=== PATIENT | female | born 1995 | race Caucasian/White ===

== ENCOUNTER 2018-07-21 02:57 | Inpatient (IN) | payer MEDICAID ==
[2018-07-21 03:28] LABS: URINE SOURCE RANDOM
[2018-07-21 03:31] LABS: URINE BILIRUBIN NEGATIVE (NEGATIVE); URINE BLOOD SMALL (NEGATIVE); URINE GLUCOSE (UA) NEGATIVE (NEGATIVE); URINE KETONE NEGATIVE (NEGATIVE); URINE LEUKOCYTE ESTERASE SMALL (NEGATIVE); URINE MICROSCOPIC INDICATED? YES; URINE NITRATE NEGATIVE (NEGATIVE); URINE PROTEIN NEGATIVE (NEGATIVE); URINE UROBILINOGEN 0.2 E.U./dL (0.2 - 1.0)
[2018-07-21 03:43] LABS: URINE CLARITY HAZY (CLEAR); URINE COLOR YELLOW
[2018-07-21] MEDS ORDERED: Sodium Chloride 0.9% 1,000 ML IV ONE (03:44)
[2018-07-21 03:45] LABS: % EOSINOPHILS 1.1 % (0.0-5.0); % LYMPHOCYTES 17.1 % (20.0-50.0); % MONOCYTES 4.1 % (2.0-10.0); % NEUTROPHILS 77.7 % (40.0-80.0); EOSINOPHILE ABSOLUTE 0.1 Th/cmm (0.1-0.4); HEMATOCRIT 37.9 % (41.0-60); HEMOGLOBIN 12.8 gm/dL (12-16); LYMPHOCYTE ABSOLUTE 1.7 Th/cmm (1.5-3.0); MEAN CELL VOLUME 85.9 fl (81-100); MEAN CORPUSCULAR HEMOGLOBIN 29.1 pg (27.0-31.0); MEAN CORPUSCULAR HGB CONC 33.8 pg (28.0-36.0); MEAN PLATELET VOLUME 8.1 fl; MONOCYTE ABSOLUTE 0.4 Th/cmm (0.3-1.0); PLATELET COUNT 314 Th/cmm (150-400); RED BLOOD COUNT 4.42 Mil/cmm (3.80-5.10); RED CELL DISTRIBUTION WIDTH 12.2 % (11.5-20.0); WHITE BLOOD COUNT 10.2 Th/cmm (4.8-10.8)
[2018-07-21 03:45] LABS: URINE BACTERIA FEW /hpf (NONE SEEN); URINE EPITHELIAL CELLS FEW /lpf (FEW)
[2018-07-21 04:01] LABS: AMYLASE SERUM 53 U/L (29-103); ANION GAP 11.6 (7.0-16.0); BUN - UREA NITROGEN 10 mg/dL (7-25); CALCIUM SERUM 9.3 mg/dL (8.6-10.3); CARBON DIOXIDE 23.8 mEq/L (21.0-31.0); CHLORIDE 107 mEq/L (98-107); CREATININE - SERUM 0.7 mg/dL (0.6-1.2); GFR AFRICAN-AMERICAN > 60.0 ml/min (>90); GFR NON AFRICAN-AMERICAN > 60.0 ml/min; GLUCOSE 101 mg/dL (70-105); LIPASE 23 U/L (11-82); POTASSIUM SERUM 3.4 mEq/L (3.5-5.1); SODIUM SERUM 139 mEq/L (136-145)
[2018-07-21] MEDS ORDERED: Morphine Sulfate 2 mg/mL 1mL Syr ONE (04:43)
[2018-07-21] MEDS ORDERED: Morphine Sulfate 2 mg/mL 1mL Syr IVP STA (04:52)
[2018-07-21] MEDS ORDERED: cefTRIAXone 1 GM in Sodium Chloride 0.9% 50 ML IV ONE (04:52)
[2018-07-21] MEDS ORDERED: Potassium Chloride 20 mEq ER Tab PO ONE ×2 (05:17→05:18)
--- NOTE | 2018-07-21 06:05 | ED Physician Chart ---
ED Chief Complaint/HPI - Patient Information Date Seen:: 07/21/18 Time Seen:: 03:00 Chief Complaint:: Abdominal Pain History of Present Illness:: onset x 3 hours of intermittent, sharp, crampy abdominal pain especially at the RLQ and Right Flank regions with N/V; pt denies trauma, H/As, S/T, neck pain, cough, C/P, SOB, A/D/C, fever, chills, or urinary s/s Allergies:: Allergies Allergy/AdvReac Type Severity Reaction Status Date / Time No Known Allergies Allergy Verified 07/21/18 03:20 Vitals:: Vital Signs - 8 hr 07/21/18 03:00 Temp 99.0 F HR 118 RR 19 BP 123/78 O2 Sat % 98 Historian:: Patient Review:: Nurse's Note Reviewed ED Review of Systems - Review of Systems General/Constitutional: No fever, No chills, No weight loss, No weakness, No diaphoresis, No edema, No loss of appetite Skin: No skin lesions, No rash, No bruising Head: No headache, No light-headedness Eyes: No loss of vision, No pain, No diplopia ENT: No earache, No nasal drainage, No sore throat, No tinnitus Neck: No neck pain, No swelling, No thyromegaly, No stiffness, No mass noted Cardio Vascular: No chest pain, No palpitations, No PND, No orthopnea, No edema Pulmonary: No SOB, No cough, No sputum, No wheezing GI: Nausea, Vomiting, Diarrhea, Pain, No melena, No hematochezia, No constipation, No hematemesis G/U: No dysuria, No frequency, No hematuria, No nacturia [employer]: No vaginal discharge, No abnormal vaginal bleed, No contraction Musculoskeletal: No bone or joint pain, No back pain, No muscle pain Endocrine: No polyuria, No polydipsia Psychiatric: No prior psych history, No depression, No anxiety, No suicidal ideation, No homicidal ideation, No auditory hallucination, No visual hallucination Hematopoietic: No bruising, No lymphadenopathy Allergic/Immuno: No urticaria, No angioedema Neurological: No syncope, No focal symptoms, No weakness, No paresthesia, No headache, No seizure, No dizziness, No confusion, No vertigo ED Past Medical History - Past Medical History Obtainable: Yes Past Medical History: No significant medical hx Family History: None Social History: Non Smoker, No Alcohol, No Drug Use, Single Surgical History: None Psychiatricy History: None Medication: Reviewed Family Medical History - Family Member Mother History Unknown: Yes ED Physical Exam - Physical Examination General/Constitutional: Awake, Well-developed, well-nourished, Alert, No distress, GCS 15, Non-toxic appearing, Ambulatory Head: Atraumatic Eyes: Lids, conjuctiva normal, PERRL, EOMI Skin: Nl inspection, No rash, No skin lesions, No ecchymosis, Well hydrated, No lymphadenopathy ENMT: External ears, nose nl, TM canals nl, Nasal exam nl, Lips, teeth, gums nl , Oropharynx nl, Tonsils nl Neck: Nontender, Full ROM w/o pain, No JVD, No nuchal rigidity, No bruit, No mass, No stridor Respiratory: Nl effort/Exclusion, Clear to Auscultation, No Wheeze/Rhonchi/Rales Cardio Vascular: RRR, No murmur, gallop, rubs, NL S1 S2, Carotid/Femoral/Distal pulses equal bilaterally GI: No organomegaly, No hernia, Normal BS's, Nondistended, No mass/bruits Other GI comments:: + RLQ Tenderness and Rebound; + RCVAT; no pulsatile masses : No CVA tenderness Extremities: No tenderness or effusion, Full ROM, normal strength in all extremities, No edema, Normal digits & nails Neuro/Psych: Alert/oriented, DTR's symmetric, Normal sensory exam, Normal motor strength, Judgement/insight normal, Mood normal, Normal gait, No focal deficits Misc: Normal back, No paraspinal tenderness ED Labs/Radiology/EKG Results - Lab Results Results: Laboratory Tests 07/21/18 07/21/18 07/21/18 03:15 03:15 03:30 WBC 10.2 RBC 4.42 Hgb 12.8 Hct 37.9 L MCV 85.9 MCH 29.1 MCHC Differential 33.8 RDW 12.2 Plt Count 314 MPV 8.1 Neutrophils % 77.7 Lymphocytes % 17.1 L Monocytes % 4.1 Eosinophils % 1.1 Basophils % 0.0 Sodium Potassium Chloride Carbon Dioxide Anion Gap BUN Creatinine Est GFR ( Amer) Est GFR (Non-Af Amer) BUN/Creatinine Ratio Glucose Calcium Amylase Lipase Serum , Qual Urine Source RANDOM Urine Color YELLOW Urine Clarity HAZY Urine pH 7.0 Ur Specific [place] 1.010 Urine Protein NEGATIVE Urine Glucose (UA) NEGATIVE Urine Ketones NEGATIVE Urine Blood SMALL H Urine Nitrate NEGATIVE Urine Bilirubin NEGATIVE Urine Urobilinogen 0.2 Ur Leukocyte Esterase SMALL H Urine RBC 2-5 Urine WBC 6-10 H Ur Epithelial Cells FEW Urine Bacteria FEW Urine Test NEGATIVE 07/21/18 07/21/18 03:30 03:30 WBC RBC Hgb Hct MCV MCH MCHC Differential RDW Plt Count MPV Neutrophils % Lymphocytes % Monocytes % Eosinophils % Basophils % Sodium 139 Potassium 3.4 L Chloride 107 Carbon Dioxide 23.8 Anion Gap 11.6 BUN 10 Creatinine 0.7 Est GFR ( Amer) > 60.0 Est GFR (Non-Af Amer) > 60.0 BUN/Creatinine Ratio 14.3 Glucose 101 Calcium 9.3 Amylase 53 Lipase 23 Serum , Qual NEGATIVE Urine Source Urine Color Urine Clarity Urine pH Ur Specific [place] Urine Protein Urine Glucose (UA) Urine Ketones Urine Blood Urine Nitrate Urine Bilirubin Urine Urobilinogen Ur Leukocyte Esterase Urine RBC Urine WBC Ur Epithelial Cells Urine Bacteria Urine Test Comments:: Reviewed - Radiology Results Comments:: NAD ED Septic Shock - . Is Septic Shock (SBP<90, OR Lactate>4 mmol\L) present?: No - <6hrs of presentation: Vital Signs: Vital Signs - 8 hr 07/21/18 03:00 Temp 99.0 F HR 118 RR 19 BP 123/78 O2 Sat % 98 ED Reassessment (Disposition) - Reassessment Reassessment Condition:: Improved - Diagnosis Diagnosis:: Abdominal Pain; Acute Abdominal Pain; N/V; Intractable Pain; UTI; Nephrolithiasis; Hematuria; R/O: Appendicitis; Ovarian Cyst; Fever; Hypokalemia ; Dehydration - Aftercare/Follow up Instructions Aftercare/Follow-Up Instructions:: Counseled pt regarding lab results/diagnosis & need follow up, Counseled pt & family regarding lab results/diagnosis & need follow up - Patient Disposition Discharge/Transfer:: Acute Care w/in this hosp Accepting Physician:: Dr. Roche Time Called:: [id number] Time Responded:: 04:45 Admitted to:: Med/Surg Spoke to:: Dr. Roche Admitting Medical Physician:: Dr. Roche Condition at Disposition:: Stable, Improved
--- NOTE | 2018-07-21 07:53 | Diagnostic Imaging Report ---
CT scan of the abdomen and pelvis without intravenous contrast History: Pain Total DLP equals 670 CTDI equals 12.7 Axial sections were obtained from the xiphoid process down to the pubic symphysis. The liver demonstrates a normal size and contour. No focal lesions are seen. The spleen appears normal. No abnormalities are seen in the region of the pancreas. The kidneys appear normal bilaterally. The exam of the pelvis demonstrates mild right adnexal fullness with hypodensity. The findings may be associated with ovarian follicular changes. No other abnormal masses. No free fluid. No abnormality seen in the region of the appendix. IMPRESSION: 1. Mild right adnexal fullness with hypodensity that may be associated with ovarian follicular changes. Clinical correlation and correlation with the menstrual status needed. No other acute abnormalities.
[2018-07-21] MEDS ORDERED: D5-0.45NS w/20 mEq KCL 1,000 ML IV ONE ×2 (08:09→16:33)
[2018-07-21] MEDS: D5-0.45NS w/20 mEq KCL 1,000 ML IV SCH ×3 (08:19→22:30)
--- NOTE | 2018-07-21 09:02 | General Progress Note ---
Subjective - Review of Systems Service Date: 07/21/18 Events since last encounter: chart reviewed, seen in ER CT scan noted US in progress, no GB stones labs normal CBC, possible ovarian cyst will observe and repeat tests Objective - Results Result Diagrams: 07/21/18 03:30 07/21/18 03:30 Recent Labs: Laboratory Last Values WBC 10.2 Th/cmm (4.8-10.8) 07/21/18 03:30 RBC 4.42 Mil/cmm (3.80-5.10) 07/21/18 03:30 Hgb 12.8 gm/dL (12-16) 07/21/18 03:30 Hct 37.9 % (41.0-60) L 07/21/18 03:30 MCV 85.9 fl (81-100) 07/21/18 03:30 MCH 29.1 pg (27.0-31.0) 07/21/18 03:30 MCHC Differential 33.8 pg (28.0-36.0) 07/21/18 03:30 RDW 12.2 % (11.5-20.0) 07/21/18 03:30 Plt Count 314 Th/cmm (150-400) 07/21/18 03:30 MPV 8.1 fl 07/21/18 03:30 Neutrophils % 77.7 % (40.0-80.0) 07/21/18 03:30 Lymphocytes % 17.1 % (20.0-50.0) L 07/21/18 03:30 Monocytes % 4.1 % (2.0-10.0) 07/21/18 03:30 Eosinophils % 1.1 % (0.0-5.0) 07/21/18 03:30 Basophils % 0.0 % (0.0-2.0) 07/21/18 03:30 Sodium 139 mEq/L (136-145) 07/21/18 03:30 Potassium 3.4 mEq/L (3.5-5.1) L 07/21/18 03:30 Chloride 107 mEq/L (98-107) 07/21/18 03:30 Carbon Dioxide 23.8 mEq/L (21.0-31.0) 07/21/18 03:30 Anion Gap 11.6 (7.0-16.0) 07/21/18 03:30 BUN 10 mg/dL (7-25) 07/21/18 03:30 Creatinine 0.7 mg/dL (0.6-1.2) 07/21/18 03:30 Est GFR ( Amer) > 60.0 ml/min (>90) 07/21/18 03:30 Est GFR (Non-Af Amer) > 60.0 ml/min 07/21/18 03:30 BUN/Creatinine Ratio 14.3 07/21/18 03:30 Glucose 101 mg/dL (70-105) 07/21/18 03:30 Calcium 9.3 mg/dL (8.6-10.3) 07/21/18 03:30 Amylase 53 U/L (29-103) 07/21/18 03:30 Lipase 23 U/L (11-82) 07/21/18 03:30 Serum , Qual NEGATIVE (NEGATIVE) 07/21/18 03:30 Urine Source RANDOM 07/21/18 03:15 Urine Color YELLOW 07/21/18 03:15 Urine Clarity HAZY (CLEAR) 07/21/18 03:15 Urine pH 7.0 (4.6 - 8.0) 07/21/18 03:15 Ur Specific [place] 1.010 (1.005-1.030) 07/21/18 03:15 Urine Protein NEGATIVE mg/dL (NEGATIVE) 07/21/18 03:15 Urine Glucose (UA) NEGATIVE mg/dL (NEGATIVE) 07/21/18 03:15 Urine Ketones NEGATIVE mg/dL (NEGATIVE) 07/21/18 03:15 Urine Blood SMALL (NEGATIVE) H 07/21/18 03:15 Urine Nitrate NEGATIVE (NEGATIVE) 07/21/18 03:15 Urine Bilirubin NEGATIVE (NEGATIVE) 07/21/18 03:15 Urine Urobilinogen 0.2 E.U./dL (0.2 - 1.0) 07/21/18 03:15 Ur Leukocyte Esterase SMALL (NEGATIVE) H 07/21/18 03:15 Urine RBC 2-5 /hpf (0-5) 07/21/18 03:15 Urine WBC 6-10 /hpf (0-5) H 07/21/18 03:15 Ur Epithelial Cells FEW /lpf (FEW) 07/21/18 03:15 Urine Bacteria FEW /hpf (NONE SEEN) 07/21/18 03:15 Urine Test NEGATIVE 07/21/18 03:15 - Physical Exam Vitals and I&O: Vital Signs Temp 98.4 F 07/21/18 07:58 Pulse 91 07/21/18 07:58 Resp 18 07/21/18 07:58 BP 124/86 07/21/18 07:58 Pulse Ox 100 07/21/18 07:58 Intake & Output 07/20/18 07/21/18 07/21/18 18:59 06:59 18:59 Intake Total 1999 Balance 1999 Weight (lbs) 83.915 kg Intake: Intake, IV Amount 2000 Sodium Chloride 0.9% 1, 1000 000 ml @ Wide Open IV . [facility]0M [facility] Rx#:[id number] Other: Weight Source Patient stated Active Medications: Current Medications Ceftriaxone Sodium 1 gm/ (Sodium Chloride) 50 mls @ 100 mls/hr IV Q24HR [facility] Stop: 09/20/18 04:59 Potassium Chloride/Dextrose/Sod Cl (D5-0.45ns W/20 Meq Kcl) 1,000 mls @ 125 mls /hr IV .Q8H [facility] Stop: 09/19/18 05:59 Last Admin: 07/21/18 08:19 Dose: 125 mls/hr Morphine Sulfate (Morphine) 4 mg IVP Q4H PRN PRN Reason: Pain (Severe) Stop: 09/19/18 05:59 Ondansetron HCl (Zofran) 4 mg IV Q4H PRN PRN Reason: Nausea / Vomiting Stop: 09/19/18 05:59
--- NOTE | 2018-07-21 10:02 | Diagnostic Imaging Report ---
Abdominal ultrasound HISTORY: Pain The liver appears enlarged. There is an increase in hepatic parenchymal echogenicity. The finding may be associated with fatty infiltration and should be correlated with liver function tests. The gallbladder appears normal. No calculi are seen. No biliary dilatation. No abnormality seen in the region of the pancreas. The kidneys appear normal bilaterally. The appendix could not be visualized due to bowel gas. No other retroperitoneal or intra-abdominal abnormalities. IMPRESSION: 1. Hepatomegaly along with parenchymal changes that may be associated with fatty infiltration. The finding should be correlated with liver function tests. 2. No other abnormalities
[2018-07-21] MEDS ORDERED: Morphine Sulfate 4 mg/mL 1mL Syr ONE ×3 (11:19→21:42)
[2018-07-21] MEDS: Morphine Sulfate 4 mg/mL 1mL Syr IVP PRN ×2 (11:22→16:39)
--- NOTE | 2018-07-22 01:49 | History & Physical ---
ADMIT DATE: 07/21/2018 CHIEF COMPLAINT: Right lower lobe abdominal pain for 1 day duration. HISTORY OF PRESENT ILLNESS: The patient is a 22-year-old female presented to the Emergency Room complaining of severe pain in the right lower abdomen. Initial workup sent for urinary infection, possible acute appendicitis. CT of the abdomen was negative. The patient admitted to the hospital. Dr. Finney consulted on the case. She denies any fever or chills. No diarrhea. She has some nausea, no vomiting. The patient was started on IV fluid, antibiotic. Abdominal ultrasound was done today, which was negative for cholelithiasis or cholecystitis. PAST MEDICAL HISTORY: Significant for depression. PAST SURGICAL HISTORY: No recent surgery. ALLERGIES: None. MEDICATIONS: Celexa 10 mg a day. SOCIAL HISTORY: She denies smoking, drinks socially. No drug. FAMILY HISTORY: Noncontributory. REVIEW OF SYSTEMS: RENAL SYSTEM: No history of chronic renal disorder. CARDIOVASCULAR SYSTEM: No coronary artery disease. ENDOCRINE SYSTEM: No diabetes or thyroid problem. GASTROINTESTINAL SYSTEM: No upper or lower gastrointestinal bleed. NEUROLOGICAL SYSTEM: No seizure disorder. MUSCULOSKELETAL SYSTEM: No muscular dystrophy. HEMATOLOGICAL SYSTEM: No bleeding tendencies. RESPIRATORY SYSTEM: No asthma. GENITOURINARY: No dysuria or hematuria. PHYSICAL EXAMINATION: GENERAL: He is awake, alert, oriented, not in pain in no distress. VITAL SIGNS: Temperature 98, heart rate 88, and blood pressure 130/70. HEENT: Normocephalic. Pupils reacting equally to light and accommodation. Sclerae clear. NECK: Supple. Negative for lymphadenopathy, JVD, or bruit. CHEST: Entry of air bilateral normal. No rhonchi or wheezing. HEART: S1, S2 normal. No gallop rhythm. ABDOMEN: Soft, bowel sounds positive. There is tenderness in the right lower abdomen. Rebound negative. Bowel sounds positive. EXTREMITIES: No edema. NEUROLOGIC: She is awake, alert, oriented. No focal motor or sensory deficit. Cranial nerves II through XII are intact. LABORATORY DATA: CT of the abdomen significant for mild right adnexal fullness with hypodensity that may be associated with open infarct or changes. No other abnormality. Abdominal ultrasound significant for fatty liver. White blood cell 10.2, hemoglobin 10.8, hematocrit 37.9, and platelet 314. Sodium 139, potassium 3.4, BUN is 10, and creatinine 0.7. Urinalysis: White cells 6-10. ASSESSMENT: 1. Urinary tract infection. 2. Acute abdomen, possible secondary to right ovarian cyst. 3. History of depression. 4. Fatty liver. PLAN: The patient admitted to the hospital under Dr. Roche's service, IV fluid, antibiotic. The patient is a full code. JOB# [id number]
[2018-07-22 04:52] LABS: % BASOPHILS 0.7 % (0.0-2.0); % MONOCYTES 10.5 % (2.0-10.0); % NEUTROPHILS 60.8 % (40.0-80.0); EOSINOPHILE ABSOLUTE 0.2 Th/cmm (0.1-0.4); HEMATOCRIT 34.7 % (41.0-60); HEMOGLOBIN 11.9 gm/dL (12-16); LYMPHOCYTE ABSOLUTE 1.7 Th/cmm (1.5-3.0); MEAN CELL VOLUME 86.8 fl (81-100); MEAN CORPUSCULAR HEMOGLOBIN 29.7 pg (27.0-31.0); MEAN CORPUSCULAR HGB CONC 34.2 pg (28.0-36.0); MONOCYTE ABSOLUTE 0.7 Th/cmm (0.3-1.0); NEUTROPHILE ABSOLUTE 4.3 Th/cmm (1.8-8.0); PLATELET COUNT 300 Th/cmm (150-400); RED BLOOD COUNT 3.99 Mil/cmm (3.80-5.10); RED CELL DISTRIBUTION WIDTH 12.1 % (11.5-20.0); WHITE BLOOD COUNT 6.9 Th/cmm (4.8-10.8)
[2018-07-22] MEDS ORDERED: cefTRIAXone 1 GM in Sodium Chloride 0.9% 50 ML IV SCH (05:00)
[2018-07-22 05:07] LABS: ALB/GLOB RATIO 1.3 (1.0-1.8); ALBUMIN 3.4 gm/dL (3.7-5.3); ALKALINE PHOSPHATASE 44 U/L (34-104); BILIRUBIN,TOTAL 0.4 mg/dL (0.3-1.0); BUN - UREA NITROGEN 4 mg/dL (7-25); CALCIUM SERUM 8.6 mg/dL (8.6-10.3); CARBON DIOXIDE 23.6 mEq/L (21.0-31.0); CHLORIDE 107 mEq/L (98-107); CREATININE - SERUM 0.6 mg/dL (0.6-1.2); GFR AFRICAN-AMERICAN > 60.0 ml/min (>90); GFR NON AFRICAN-AMERICAN > 60.0 ml/min; GLUCOSE 109 mg/dL (70-105); POTASSIUM SERUM 3.6 mEq/L (3.5-5.1); SGOT 9 U/L (13-39); SGPT/ALT 7 U/L (7-52); SODIUM SERUM 137 mEq/L (136-145); TOTAL PROTEIN,SERUM 6.1 gm/dL (6.0-8.3)
--- NOTE | 2018-07-22 08:45 | General Progress Note ---
Subjective - Review of Systems Service Date: 07/22/18 Events since last encounter: pain less ultrasound fatty infiltration of liver no GB stones, appendix not visualized Objective - Results Result Diagrams: 07/22/18 04:30 07/22/18 04:30 Recent Labs: Laboratory Last Values WBC 6.9 Th/cmm (4.8-10.8) 07/22/18 04:30 RBC 3.99 Mil/cmm (3.80-5.10) 07/22/18 04:30 Hgb 11.9 gm/dL (12-16) L 07/22/18 04:30 Hct 34.7 % (41.0-60) L 07/22/18 04:30 MCV 86.8 fl (81-100) 07/22/18 04:30 MCH 29.7 pg (27.0-31.0) 07/22/18 04:30 MCHC Differential 34.2 pg (28.0-36.0) 07/22/18 04:30 RDW 12.1 % (11.5-20.0) 07/22/18 04:30 Plt Count 300 Th/cmm (150-400) 07/22/18 04:30 MPV 8.0 fl 07/22/18 04:30 Neutrophils % 60.8 % (40.0-80.0) 07/22/18 04:30 Lymphocytes % 25.0 % (20.0-50.0) 07/22/18 04:30 Monocytes % 10.5 % (2.0-10.0) H 07/22/18 04:30 Eosinophils % 3.0 % (0.0-5.0) 07/22/18 04:30 Basophils % 0.7 % (0.0-2.0) 07/22/18 04:30 Sodium 137 mEq/L (136-145) 07/22/18 04:30 Potassium 3.6 mEq/L (3.5-5.1) 07/22/18 04:30 Chloride 107 mEq/L (98-107) 07/22/18 04:30 Carbon Dioxide 23.6 mEq/L (21.0-31.0) 07/22/18 04:30 Anion Gap 10.0 (7.0-16.0) 07/22/18 04:30 BUN 4 mg/dL (7-25) L 07/22/18 04:30 Creatinine 0.6 mg/dL (0.6-1.2) 07/22/18 04:30 Est GFR ( Amer) > 60.0 ml/min (>90) 07/22/18 04:30 Est GFR (Non-Af Amer) > 60.0 ml/min 07/22/18 04:30 BUN/Creatinine Ratio 6.7 07/22/18 04:30 Glucose 109 mg/dL (70-105) H 07/22/18 04:30 Calcium 8.6 mg/dL (8.6-10.3) 07/22/18 04:30 Total Bilirubin 0.4 mg/dL (0.3-1.0) 07/22/18 04:30 AST 9 U/L (13-39) L 07/22/18 04:30 ALT 7 U/L (7-52) 07/22/18 04:30 Alkaline Phosphatase 44 U/L (34-104) 07/22/18 04:30 Total Protein 6.1 gm/dL (6.0-8.3) 07/22/18 04:30 Albumin 3.4 gm/dL (3.7-5.3) L 07/22/18 04:30 Globulin 2.7 gm/dL 07/22/18 04:30 Albumin/Globulin Ratio 1.3 (1.0-1.8) 07/22/18 04:30 Amylase 53 U/L (29-103) 07/21/18 03:30 Lipase 23 U/L (11-82) 07/21/18 03:30 Serum , Qual NEGATIVE (NEGATIVE) 07/21/18 03:30 Urine Source RANDOM 07/21/18 03:15 Urine Color YELLOW 07/21/18 03:15 Urine Clarity HAZY (CLEAR) 07/21/18 03:15 Urine pH 7.0 (4.6 - 8.0) 07/21/18 03:15 Ur Specific [place] 1.010 (1.005-1.030) 07/21/18 03:15 Urine Protein NEGATIVE mg/dL (NEGATIVE) 07/21/18 03:15 Urine Glucose (UA) NEGATIVE mg/dL (NEGATIVE) 07/21/18 03:15 Urine Ketones NEGATIVE mg/dL (NEGATIVE) 07/21/18 03:15 Urine Blood SMALL (NEGATIVE) H 07/21/18 03:15 Urine Nitrate NEGATIVE (NEGATIVE) 07/21/18 03:15 Urine Bilirubin NEGATIVE (NEGATIVE) 07/21/18 03:15 Urine Urobilinogen 0.2 E.U./dL (0.2 - 1.0) 07/21/18 03:15 Ur Leukocyte Esterase SMALL (NEGATIVE) H 07/21/18 03:15 Urine RBC 2-5 /hpf (0-5) 07/21/18 03:15 Urine WBC 6-10 /hpf (0-5) H 07/21/18 03:15 Ur Epithelial Cells FEW /lpf (FEW) 07/21/18 03:15 Urine Bacteria FEW /hpf (NONE SEEN) 07/21/18 03:15 Urine Test NEGATIVE 07/21/18 03:15 - Physical Exam Vitals and I&O: Vital Signs Temp 99.0 F 07/22/18 06:00 Pulse 81 07/22/18 06:00 Resp 18 07/22/18 06:00 BP 105/75 07/22/18 06:00 Pulse Ox 98 07/22/18 06:00 Intake & Output 07/21/18 07/22/18 07/22/18 18:59 06:59 18:59 Intake Total 1000 720.833 Balance 1000 720.833 Weight (lbs) 83.915 kg 85.457 kg Intake: Intake, IV Amount 1000 720.833 D5-0.45NS w/20 mEq KCL 1, 1000 670.833 000 ml @ 125 mls/hr IV . Q8H [facility] Rx#:[id number] cefTRIAXone 1 gm In 50 Sodium Chloride 0.9% 50 ml @ 100 mls/hr IV Q24HR [facility] Rx#:[id number] Other: # Voids 2 1 # Bowel Movements 0 Weight Source Patient stated Bedscale Active Medications: Current Medications Ceftriaxone Sodium 1 gm/ (Sodium Chloride) 50 mls @ 100 mls/hr IV Q24HR [facility] Stop: 09/20/18 04:59 Last Infusion: 07/22/18 06:25 Dose: Infused Potassium Chloride/Dextrose/Sod Cl (D5-0.45ns W/20 Meq Kcl) 1,000 mls @ 125 mls /hr IV .Q8H [facility] Stop: 09/19/18 05:59 Last Admin: 07/21/18 22:30 Dose: 125 mls/hr Ketorolac Tromethamine (Toradol) 15 mg IVP Q6HR PRN PRN Reason: Headache Stop: 09/19/18 22:29 Last Admin: 07/22/18 05:52 Dose: 15 mg Morphine Sulfate (Morphine) 4 mg IVP Q4H PRN PRN Reason: Pain (Severe) Stop: 09/19/18 05:59 Last Admin: 07/21/18 16:39 Dose: 4 mg Ondansetron HCl (Zofran) 4 mg IV Q4H PRN PRN Reason: Nausea / Vomiting Stop: 09/19/18 05:59 Last Admin: 07/21/18 22:31 Dose: 4 mg
--- NOTE | 2018-07-22 08:49 | General Progress Note ---
Subjective - Review of Systems Service Date: 07/22/18 Events since last encounter: start clear liquids suggest referral to Gyne post DC Objective - Results Result Diagrams: 07/22/18 04:30 07/22/18 04:30 Recent Labs: Laboratory Last Values WBC 6.9 Th/cmm (4.8-10.8) 07/22/18 04:30 RBC 3.99 Mil/cmm (3.80-5.10) 07/22/18 04:30 Hgb 11.9 gm/dL (12-16) L 07/22/18 04:30 Hct 34.7 % (41.0-60) L 07/22/18 04:30 MCV 86.8 fl (81-100) 07/22/18 04:30 MCH 29.7 pg (27.0-31.0) 07/22/18 04:30 MCHC Differential 34.2 pg (28.0-36.0) 07/22/18 04:30 RDW 12.1 % (11.5-20.0) 07/22/18 04:30 Plt Count 300 Th/cmm (150-400) 07/22/18 04:30 MPV 8.0 fl 07/22/18 04:30 Neutrophils % 60.8 % (40.0-80.0) 07/22/18 04:30 Lymphocytes % 25.0 % (20.0-50.0) 07/22/18 04:30 Monocytes % 10.5 % (2.0-10.0) H 07/22/18 04:30 Eosinophils % 3.0 % (0.0-5.0) 07/22/18 04:30 Basophils % 0.7 % (0.0-2.0) 07/22/18 04:30 Sodium 137 mEq/L (136-145) 07/22/18 04:30 Potassium 3.6 mEq/L (3.5-5.1) 07/22/18 04:30 Chloride 107 mEq/L (98-107) 07/22/18 04:30 Carbon Dioxide 23.6 mEq/L (21.0-31.0) 07/22/18 04:30 Anion Gap 10.0 (7.0-16.0) 07/22/18 04:30 BUN 4 mg/dL (7-25) L 07/22/18 04:30 Creatinine 0.6 mg/dL (0.6-1.2) 07/22/18 04:30 Est GFR ( Amer) > 60.0 ml/min (>90) 07/22/18 04:30 Est GFR (Non-Af Amer) > 60.0 ml/min 07/22/18 04:30 BUN/Creatinine Ratio 6.7 07/22/18 04:30 Glucose 109 mg/dL (70-105) H 07/22/18 04:30 Calcium 8.6 mg/dL (8.6-10.3) 07/22/18 04:30 Total Bilirubin 0.4 mg/dL (0.3-1.0) 07/22/18 04:30 AST 9 U/L (13-39) L 07/22/18 04:30 ALT 7 U/L (7-52) 07/22/18 04:30 Alkaline Phosphatase 44 U/L (34-104) 07/22/18 04:30 Total Protein 6.1 gm/dL (6.0-8.3) 07/22/18 04:30 Albumin 3.4 gm/dL (3.7-5.3) L 07/22/18 04:30 Globulin 2.7 gm/dL 07/22/18 04:30 Albumin/Globulin Ratio 1.3 (1.0-1.8) 07/22/18 04:30 Amylase 53 U/L (29-103) 07/21/18 03:30 Lipase 23 U/L (11-82) 07/21/18 03:30 Serum , Qual NEGATIVE (NEGATIVE) 07/21/18 03:30 Urine Source RANDOM 07/21/18 03:15 Urine Color YELLOW 07/21/18 03:15 Urine Clarity HAZY (CLEAR) 07/21/18 03:15 Urine pH 7.0 (4.6 - 8.0) 07/21/18 03:15 Ur Specific [place] 1.010 (1.005-1.030) 07/21/18 03:15 Urine Protein NEGATIVE mg/dL (NEGATIVE) 07/21/18 03:15 Urine Glucose (UA) NEGATIVE mg/dL (NEGATIVE) 07/21/18 03:15 Urine Ketones NEGATIVE mg/dL (NEGATIVE) 07/21/18 03:15 Urine Blood SMALL (NEGATIVE) H 07/21/18 03:15 Urine Nitrate NEGATIVE (NEGATIVE) 07/21/18 03:15 Urine Bilirubin NEGATIVE (NEGATIVE) 07/21/18 03:15 Urine Urobilinogen 0.2 E.U./dL (0.2 - 1.0) 07/21/18 03:15 Ur Leukocyte Esterase SMALL (NEGATIVE) H 07/21/18 03:15 Urine RBC 2-5 /hpf (0-5) 07/21/18 03:15 Urine WBC 6-10 /hpf (0-5) H 07/21/18 03:15 Ur Epithelial Cells FEW /lpf (FEW) 07/21/18 03:15 Urine Bacteria FEW /hpf (NONE SEEN) 07/21/18 03:15 Urine Test NEGATIVE 07/21/18 03:15 - Physical Exam Vitals and I&O: Vital Signs Temp 99.0 F 07/22/18 06:00 Pulse 81 07/22/18 06:00 Resp 18 07/22/18 06:00 BP 105/75 07/22/18 06:00 Pulse Ox 98 07/22/18 06:00 Intake & Output 07/21/18 07/22/18 07/22/18 18:59 06:59 18:59 Intake Total 1000 720.833 Balance 1000 720.833 Weight (lbs) 83.915 kg 85.457 kg Intake: Intake, IV Amount 1000 720.833 D5-0.45NS w/20 mEq KCL 1, 1000 670.833 000 ml @ 125 mls/hr IV . Q8H [facility] Rx#:[id number] cefTRIAXone 1 gm In 50 Sodium Chloride 0.9% 50 ml @ 100 mls/hr IV Q24HR [facility] Rx#:[id number] Other: # Voids 2 1 # Bowel Movements 0 Weight Source Patient stated Bedscale Active Medications: Current Medications Ceftriaxone Sodium 1 gm/ (Sodium Chloride) 50 mls @ 100 mls/hr IV Q24HR [facility] Stop: 09/20/18 04:59 Last Infusion: 07/22/18 06:25 Dose: Infused Potassium Chloride/Dextrose/Sod Cl (D5-0.45ns W/20 Meq Kcl) 1,000 mls @ 125 mls /hr IV .Q8H [facility] Stop: 09/19/18 05:59 Last Admin: 07/21/18 22:30 Dose: 125 mls/hr Ketorolac Tromethamine (Toradol) 15 mg IVP Q6HR PRN PRN Reason: Headache Stop: 09/19/18 22:29 Last Admin: 07/22/18 05:52 Dose: 15 mg Morphine Sulfate (Morphine) 4 mg IVP Q4H PRN PRN Reason: Pain (Severe) Stop: 09/19/18 05:59 Last Admin: 07/21/18 16:39 Dose: 4 mg Ondansetron HCl (Zofran) 4 mg IV Q4H PRN PRN Reason: Nausea / Vomiting Stop: 09/19/18 05:59 Last Admin: 07/21/18 22:31 Dose: 4 mg
[2018-07-22] MEDS ORDERED: Hydrocodone/APAP 10 mg/325 mg Tab PO PRN (09:02)
[2018-07-22] MEDS: D5-0.45NS w/20 mEq KCL 1,000 ML IV SCH (11:41)
[2018-07-22 15:02] VITALS: BP 123/78
== END 2018-07-22 17:30 | disposition home or self-care (01) | DRG 463 ==
LOC: ER 02:57 → MSI 05:55 → ICU 21:58
PROVIDERS: ADMIT Family Medicine; ATTEND Family Medicine
DX: N39.0 Urinary tract infection, site not specified (principal); K76.0 Fatty (change of) liver, not elsewhere classified; E86.0 Dehydration; E87.6 Hypokalemia; N83.201 Unspecified ovarian cyst, right side; F32.9 Major depressive disorder, single episode, unspecified; R31.9 Hematuria, unspecified; N20.0 Calculus of kidney; R11.2 Nausea with vomiting, unspecified
CPT/HCPCS: 36415-UA; 76700-TC; 80048-TC; 80053-TC; 81001-TC; 81025-TC; 82150-TC; 83690-TC; 84703-TC; 85025-TC; 90784; 96375; J0696; J1885; J2270; J2405